=== PATIENT | male | born 1960 | race Caucasian/White ===

== ENCOUNTER → 2020-02-07 | Outpatient (CLI) | payer OTHER ==
[~2020-02-07] MED LIST: AMARYL2 MG PO; COREG6.25 MG PO; CRESTOR40 MG PO; CYCLOBENZAPRINE10 MG PO; METFORMIN HCL500 MG PO; NORCO 10-325 T1 EACH PO; OLMESARTAN-HCT1 EAC2 PO; PERCOCET 5-3251 EACH PO; XARELTO10 M1 PO
[2020-02-07 09:22] LABS: HEMATOCRIT 40.5 % (42.0-52.0); HEMOGLOBIN 13.8 gm/dL (14.0-18.0); MCH 30.9 pg (26.0-34.0); MPV 6.7 fl. (7.2-11.1); RBC 4.45 mil/uL (4.50-6.00); RDW-CV 13.4 % (10.5-14.5); WBC 11.8 thou/uL (4.0-11.0)
[2020-02-07 09:35] LABS: URINE BILIRUBIN NEGATIVE (Negative); URINE BLOOD NEGATIVE (Negative); URINE CLARITY CLEAR; URINE COLOR YELLOW; URINE GLUCOSE-RANDOM NEGATIVE (Negative); URINE KETONES NEGATIVE (Negative); URINE LEUKOCYTES-REFLEX NEGATIVE (Negative); URINE NITRITE-REFLEX NEGATIVE (Negative); URINE PROTEIN NEGATIVE (Negative); URINE UROBILINOGEN 0.2 E.U./dl (0.2-1.0)
[2020-02-07 09:43] LABS: ALBUMIN 4.1 g/dL (3.4-5.0); CALCIUM 8.9 mg/dL (8.5-10.1); CREATININE 1.1 mg/dL (0.6-1.3); POTASSIUM 4.1 mmol/L (3.5-5.1); TOTAL PROTEIN 7.6 g/dL (6.4-8.2)
[2020-02-07 09:54] LABS: PROTIME 10.3 Seconds (9.20-11.50)
== END ==
LOC: M.LAB 08:59
PROVIDERS: ATTEND Orthopaedic Surgery
DX: Z01.812 Encounter for preprocedural laboratory examination (principal); Z20.828 Contact with and (suspected) exposure to other viral communicable diseases; M16.12 Unilateral primary osteoarthritis, left hip

== ENCOUNTER 2020-02-15 07:06 | Day surgery (SDC) | payer OTHER ==
[~2020-02-15] VITALS: Ht 177.8 cm; Wt 100.2 kg
[~2020-02-15 07:06] MED LIST changes: -PERCOCET 5-3251 EACH PO; -XARELTO10 M1 PO
[2020-02-15 07:30] VITALS: BP 118/56
[2020-02-15] MEDS ORDERED: XARELTO10 M1 PO (15:47)
[2020-02-15] MEDS ORDERED: PERCOCET 5-3251 EACH PO (15:49)
[2020-02-15 15:55] VITALS: BP 118/56
--- NOTE | 2020-02-16 09:35 | NUR ---
PT. DISCHARGED TO HOME PRIOR TO O.T. EVAL. PLEASE ORDER FURTHER O.T. SERVICES IF NEEDED.
--- NOTE | 2020-02-21 13:11 | OP ---
[facility] [address] [place] [address] OPERATIVE REPORT Name: JOYCE ALATORRE Room: [facility].#: [id number] Admission: 02/15/20 Attend Phys: Radha Izquierdo Discharge: 02/15/20 Date of : 64 Report #: [id number] THIS REPORT FOR: cc: Natanael Palafox Ghaison F. DO ~ Eduardo Corona II, DO DATE OF SERVICE: 02/15/2020 PREOPERATIVE DIAGNOSIS: Left hip osteoarthritis. POSTOPERATIVE DIAGNOSIS: Left hip osteoarthritis. PROCEDURE: Left total hip arthroplasty. SURGEON: Eduardo Corona II, DO. STRAIGHTENER: MOLLY Carpenter. ANESTHESIA: General endotracheal. ESTIMATED BLOOD LOSS: 200 mL. ANTIBIOTICS: Ancef preoperatively. DRAINS: Medium Hemovac. COMPLICATIONS: None. CONDITION OF THE PATIENT: Stable to recovery room. IMPLANTS: Listed in operative record and progress note. BRIEF HISTORY: The patient was seen in the preoperative area. Preoperative H and P was performed. Site was marked, questions were answered. Risks and benefits were discussed with the patient in detail about surgery. The patient wished to proceed, assuming all risks. DESCRIPTION OF PROCEDURE: The patient was taken to the operative suite and placed supine on the operative table, given appropriate anesthesia. The patient's operative hip was placed in the [place] table leg brito and sterilely prepped and draped in supine position. Surgery began on longitudinal incision over the anterior portion of the hip. This was carried down to the subcutaneous tissues. A small elias was then made in the tensor fascia. It was then split along its fibers and retracted laterally. An H capsulotomy was then performed and careful hemostasis was obtained with electrocautery and Aquamantys. The head and neck cutting alignment guide was then checked [place] [address] OPERATIVE REPORT Name: JOYCE ALATORRE Room: [facility].#: [id number] Admission: 02/15/20 Attend Phys: Radha Izquierdo Discharge: 02/15/20 Date of : 64 Report #: [id number] guidance. Appropriate cut was made to the head and neck and this was removed. Attention was turned to the acetabulum. Excess labrum was removed. It was then reamed in sequential fashion up to appropriate size. This showed excellent bleeding bone in excellent position on fluoroscopic guidance. The acetabular cup was then malleted into position and then secured with cancellous screws. Metal liner was then applied. The patient's leg was then rotated and extended in the [place] table to expose the femur. It was broached in sequential fashion up to appropriate size. Appropriate neck was then trialed with appropriate head length and showed excellent fit and fill and excellent stability of hip throughout all range of motion. These trials were removed. The final stem was then malleted into position and the final head and neck was then malleted into position. Leg was reduced in appropriate fashion, checked with C-arm for appropriate leg length and showed excellent leg length throughout the exam without evidence of dislocation upon range of motion and shuck testing. Wound was then copiously irrigated. Hemostasis was obtained with electrocautery and Aquamantys. Pain cocktail was injected. The H capsulotomy was then closed with a #1 Vicryl in [id number] fashion. Drain was activated. The tensor fascia was closed with #1 Vicryl in running fashion. Skin was closed with 2-0 Vicryl and running 3-0 Monocryl. Dermabond and sterile dressing applied. The patient transported to recovery room in stable condition. Counts were correct throughout the procedure. <ELECTRONICALLY SIGNED> By: Eduardo Corona II, DO 02/21/20 1311 26 1952Rramo Corona II, DO /nt
== END 2020-02-15 16:54 | disposition home or self-care (01) ==
LOC: M.ORTHSURG → M.TBA 07:06 → M.SUR 07:06 → M.ORTHSURG 08:59 → M.SUR 16:54 → M.ORTHSURG 17:02
PROVIDERS: ATTEND Internal Medicine
DX: M16.12 Unilateral primary osteoarthritis, left hip (principal); M25.552 Pain in left hip; I10 Essential (primary) hypertension; E11.40 Type 2 diabetes mellitus with diabetic neuropathy, unspecified; E78.5 Hyperlipidemia, unspecified; J44.9 Chronic obstructive pulmonary disease, unspecified; F41.9 Anxiety disorder, unspecified; F17.210 Nicotine dependence, cigarettes, uncomplicated; Z98.890 Other specified postprocedural states; Z79.899 Other long term (current) drug therapy